=== PATIENT | male | born 1975 | race Caucasian/White ===

== ENCOUNTER 2019-08-29 10:02 | Observation (INO) | payer BC ==
[2019-08-29] MEDS ORDERED: Iopamidol-370 76% 500 ML 1 ML ONE (10:15)
[2019-08-29] MEDS ORDERED: PROPOFOL 200 MG/20 ML VIAL ONE (10:52)
[2019-08-29] MEDS ORDERED: Ondansetron PF 4 MG/2 ML Vial ONE (10:52)
[2019-08-29] MEDS ORDERED: Lidocaine 1% PF 5 ML VIAL ONE (10:52)
[2019-08-29] MEDS ORDERED: Rocuronium Bromide 10 MG/ML (10ML VIAL) ONE (10:52)
[2019-08-29] MEDS ORDERED: Glycopyrrolate 0.2 MG/ML 5 ML SYRINGE ONE (10:52)
[2019-08-29] MEDS ORDERED: Succinylcholine Chloride 20 MG/ML 10 ml SYRINGE FS ONE (10:52)
[2019-08-29] MEDS ORDERED: Dexamethasone 20 MG/5 ML VIAL ONE (10:52)
[2019-08-29] MEDS ORDERED: Ketorolac Tromethamine 30 MG/ML VIAL ONE (10:52)
[2019-08-29 11:13] LABS: #Eosinphils 0.1 thou/uL (0.0-0.7); #Lymphocytes 1.7 thou/uL (1.20-3.40); #Monocytes 0.9 thou/uL (0.11-0.59); #Neutrophils 7.7 thou/uL (1.40-6.50); %Basophils 0.4 % (0.0-1.0); %Eosinophils 1.3 % (0.0-10.0); %Lymphocytes 16.2 % (21.0-51.0); %Monocytes 8.7 % (0.0-10.0); %Neutrophils 73.4 % (42.0-75.0); Hemoglobin 16.5 g/dL (14.0-18.0); Mean Corpuscular HGB CONC 32.8 g/dL (32.0-36.0); Mean Corpuscular Hemoglobin 27.9 pg (27.0-31.0); Mean Platelet Volume 7.9 fL (7.4-10.4); Platelet Count 228 thou/uL (130-400); RBC Distribution Width 12.1 % (11.5-14.5); Red Blood Cell (RBC) Count 5.92 mill/uL (4.70-6.10); White Blood Cell (WBC) Count 10.5 thou/uL (4.8-10.8)
[2019-08-29 11:18] LABS: Bilirubin Negative (Negative); Blood, Urine Negative (Negative); Clarity Clear (Clear); Glucose, Urine (Dipstick) Normal (Negative); Leukocyte Negative Leu/uL (Negative); Nitrite Negative (Negative); Protein, Urine (Dipstick) 20 mg/dL (Neg-Trace); Urobilinogen Normal mg/dL (Less than 2)
[2019-08-29 11:28] LABS: ALT (SGPT) 48 U/L (8-55); AST (SGOT) 25 U/L (5-34); Albumin 4.4 g/dL (3.5-5.0); Alkaline Phosphatase 71 U/L (40-110); Anion Gap 12 mmol/L (10-20); BUN (Urea Nitrogen) 13 mg/dL (8.9-20.6); Calc. Creatinine Clearance 0 mL/min (70-130); Calcium 9.7 mg/dL (7.8-10.44); Carbon Dioxide 28 mmol/L (22-29); Chloride 103 mmol/L (98-107); Estimated GFR-MDRD Greater than 90; Globulin 3.5 g/dL (2.4-3.5); Glucose 92 mg/dL (70-105); Lipase 14 U/L (8-78); Potassium 4.2 mmol/L (3.5-5.1); Protein, Total 7.9 g/dL (6.0-8.3); Sodium 139 mmol/L (136-145)
--- NOTE | 2019-08-29 11:41 | CT ---
EXAM: CT Abdomen Pelvis W Con PROVIDED CLINICAL HISTORY: Abdominal pain COMPARISON: 05/31/2019 FINDINGS: The visualized lung bases are free of significant opacity. The liver, spleen, pancreas and adrenal glands appear unremarkable. Simple appearing cyst involving the right kidney is redemonstrated. Indeterminate hypodense lesion wi thin the right kidney immediately adjacent to this is less well defined on the current examination due to differences in contrast timing. The left kidney appears unremarkable. Periumbilical fat-containing ventral hernia is redemonstrated. There is conspicuous stranding involvi ng the herniated fat as well as the fat that remains intraperitoneal. The hernia demonstrates a wide neck. There is stranding of the fat of the surrounding subcutaneous adipose layer. There is rede monstration of small left periumbilical fat-containing hernia just cranial to the above-described, appearing stable. There is no bowel dilatation, additional inflammatory fat stranding, free fluid or free air apparent. The osseous structures demonstrate no concerning lytic or blastic lesions. IMPRESSION: 1. Interval development of conspicuous stranding of the larger previously described herniated fat inv olving the periumbilical region of the anterior abdominal wall. This could reflect fat necrosis/omental infarction. 2. Stable smaller fat-containing ventral hernia. 3. Previously described right renal mass is less well visualized on the current examination.
[2019-08-29] MEDS ORDERED: Morphine 4 MG/ML VIAL ONE (11:54)
[2019-08-29] MEDS ORDERED: Piperacillin/Tazobactam 3.375 GM VIAL ONE (11:54)
[2019-08-29] MEDS ORDERED: Lidocaine 1% w/Epinephrine 1:100K 20 ML VIAL ONE (13:29)
[2019-08-29] MEDS ORDERED: Bupivacaine PF 0.5% 30 ML VIAL ONE (13:29)
[2019-08-29] MEDS ORDERED: Lidocaine 2% Jelly 5 ML TUBE ONE (13:35)
[2019-08-29] MEDS ORDERED: Fentanyl 100 MCG/2 ML VIAL ONE ×2 (13:35→15:50)
--- NOTE | 2019-08-29 13:49 | HP ---
CHIEF COMPLAINT: Abdominal pain. HISTORY OF PRESENT ILLNESS: This is a 44-year-old male with a history of known incisional hernia. I actually had him on the schedule for last week. He was canceled secondary to cancellation of elective cases. He was very asymptomatic at the time. He had a history of exploratory laparotomy after laparoscopic procedure in [facility] for some unknown complication and had a hernia seen on previous CT from [facility] ER, now complaining of more severe pain, bloating, 8/10, diffuse associated with pain. No nausea or vomiting. No real change in stools. No constipation. No dysuria. Seen in the emergency department, where a repeat CT scan shows incarcerated abdominal fat. The patient has significant redness to the skin. PAST MEDICAL HISTORY: Includes nephrolithiasis, ADD, and ADHD. PAST SURGICAL HISTORY: Appendectomy, exploratory laparotomy, and left ACL. SOCIAL HISTORY: No smoking. No alcohol. He is . REVIEW OF SYSTEMS: Ten-system review of systems is otherwise negative unless described above. PHYSICAL EXAMINATION: HEENT: Sclerae are anicteric. Oropharynx clear. NECK: No lymphadenopathy. CHEST: Clear. HEART: Regular rate. ABDOMEN: Soft, very tender with guarding and rebound tenderness in the area of this hernia. This hernia is not reducible. He has erythema to the skin. There are no open wounds. CT scan shows incarcerated abdominal fat with inflammatory change. LABORATORY DATA: His labs were all normal. ASSESSMENT: Incarcerated incisional hernia. PLAN: Urgent repair today with or without mesh depending on presence of infection. Risks, benefits, and alternatives discussed, he gives consent. We will do this today. Job ID: [id number]
[2019-08-29] MEDS ORDERED: Dextrose 5% in Water 1,000 ML IV PRN (16:04)
[2019-08-29] MEDS ORDERED: Promethazine HCl 25 MG/ML VIAL IM PRN (16:04)
[2019-08-29] MEDS ORDERED: hydrALAZINE 20 MG/ML VIAL SLOW IVP PRN (16:04)
[2019-08-29] MEDS ORDERED: Ondansetron PF 4 MG/2 ML Vial IVP PRN (16:04)
[2019-08-29] MEDS ORDERED: Dextrose 50% Abboject 50 ML SYRINGE SLOW IVP PRN (16:04)
[2019-08-29] MEDS ORDERED: HYDROcodone/Acetaminophen 7.5/325 mg Tablet PO PRN ×2 (16:04)
[2019-08-29] MEDS ORDERED: Fentanyl 100 MCG/2 ML VIAL SLOW IVP PRN ×2 (16:04)
--- NOTE | 2019-08-29 16:05 | OP ---
DATE OF PROCEDURE: 08/29/2019 PREOPERATIVE DIAGNOSIS: Incarcerated incisional hernia. POSTOPERATIVE DIAGNOSIS: Incarcerated incisional hernia. PROCEDURE PERFORMED: Incarcerated incisional hernia repair with mesh, Ventralex ST 13 x 17 cm. ANESTHESIA: General. ESTIMATED BLOOD LOSS: Minimal. COMPLICATIONS: None. SPECIMENS: None. DESCRIPTION OF PROCEDURE: The patient was taken to the operating room and laid supine on the operating room table. After general anesthetic was obtained, his abdomen was shaved, prepped, and draped in a sterile fashion. A midline incision was made over the palpable hernia. The hernia sac was entered and then the hernia sac was bluntly dissected away from the surrounding subcutaneous tissue. There was incarcerated omental fat. Small amount of which was dark. There was no purulence. There was no foul smell. The omentum that was in the hernia sac was all debrided and removed. The hernia sac was dissected back to the fascia and all posterior abdominal wall adhesions were taken down. A 13 x 17 Ventralex mesh was brought into the sterile field and placed in an underlay fashion. 0 Prolene sutures are used to affix the mesh to the posterior fascia with transfascial sutures. Circumferential coverage without gaps was done. The wound was irrigated. The fascia was closed loosely over the mesh using PDS. A 19 round drain brought out through a separate stab incision, sewn to the skin using silk suture. The incision was closed using 3-0 Vicryl, 4-0 Monocryl and Dermabond. The patient was sent to Recovery in stable condition. All instrument counts, needle counts, and lap counts were correct. Job ID: [id number]
[2019-08-29 17:46] VITALS: BMI 31.4
[2019-08-29] MEDS: D5 1/2 NS w/20 mEq KCL 1,000 ML IV SCH (18:03)
[2019-08-29] MEDS: Levofloxacin 500 mg/D5W 100 ml Premix Bag IVPB SCH (18:05)
[2019-08-29] MEDS: Famotidine 20 MG TAB PO SCH (20:54)
[2019-08-29] MEDS: Famotidine/PF 20 mg/2ml Vial SLOW IVP SCH (21:02)
[2019-08-29] MEDS: Ketorolac Tromethamine 30 MG/ML VIAL IVP SCH (22:46)
[2019-08-30] MEDS: D5 1/2 NS w/20 mEq KCL 1,000 ML IV SCH (04:10)
[2019-08-30] MEDS: Ketorolac Tromethamine 30 MG/ML VIAL IVP SCH ×3 (04:10→16:04)
[2019-08-30] MEDS ORDERED: Enoxaparin Sodium 40 MG/0.4 ML SYRINGE SC SCH (09:00)
[2019-08-30] MEDS: Famotidine/PF 20 mg/2ml Vial SLOW IVP SCH (09:50)
[2019-08-30] MEDS: Famotidine 20 MG TAB PO SCH (09:50)
[2019-08-30 15:49] VITALS: BP 107/69; TEMP 98.4
[2019-08-30] MEDS: Levofloxacin 500 mg/D5W 100 ml Premix Bag IVPB SCH (16:06)
--- NOTE | 2019-08-31 10:34 | DIS ---
DATE OF ADMISSION: 08/29/2019 DATE OF DISCHARGE: 08/30/2019 ADMITTING DIAGNOSIS: Incarcerated incisional hernia. DISCHARGE DIAGNOSIS: Incarcerated incisional hernia. PROCEDURES PERFORMED: Open incisional hernia repair with mesh by Todt and drain placement without complication. CONDITION ON DISCHARGE: Improved. HOSPITAL COURSE: On postop day 1, the patient's pain is controlled on oral pain medicine. He is discharged home. He has drain in place. He will follow up with me next week for drain removal in the office. He will call the office in the meantime before then if he has any issues. Job ID: [id number]
== END 2019-08-30 18:11 | disposition home or self-care (01) ==
LOC: ERS 10:02 → SURG A 13:50 → SDC 16:00 → SURG A 16:01
PROVIDERS: ADMIT Surgery; ATTEND Surgery
PROC: 0WUF0JZ Supplement Abdominal Wall with Synthetic Substitute, Open Approach (ICD-10-PCS; principal; 2019-08-29)
DX: K43.0 Incisional hernia with obstruction, without gangrene (principal); F90.9 Attention-deficit hyperactivity disorder, unspecified type; Z90.49 Acquired absence of other specified parts of digestive tract; Z98.890 Other specified postprocedural states
CPT/HCPCS: 74177; 80053; 81003; 83690; 85025; 96361; 96365; 96367; 96372; 96375; 96376; G0378; J1100; J1650; J1885; J1956; J2001; J2270; J2405; J2543; J2704; J3010; J3480; Q9967; S0020